=== PATIENT | male | born 1970 | race Caucasian/White ===

== ENCOUNTER 2018-09-03 11:41 | Emergency (ER) ==
[2018-09-03 11:46] VITALS: BP 190/113; TEMP 97; BMI 29.0
[2018-09-03] MEDS ORDERED: TORADOL IM STA (12:01)
[2018-09-03] MEDS ORDERED: DILAUDID 0.5 MG/0.5 ML SYRINGE IM STA (12:05)
[2018-09-03] MEDS ORDERED: TORADOL IVP STA (12:44)
[2018-09-03] MEDS ORDERED: DILAUDID 0.5 MG/0.5 ML SYRINGE IVP STA (12:45)
--- NOTE | 2018-09-03 13:43 | CT ---
Exam: CT abdomen pelvis without intravenous contrast. Comparison: None available. Reason for exam: Pain, renal stone protocol. FINDINGS: Image interpretation is limited by the lack of intravenous contrast administration. No pleural effusion, or focal consolidation in the partially imaged lung bases. The liver is lower in attenuation in the spleen on the noncontrasted study. There are multiple stones in the left renal parenchyma measuring up to 4.2 mm without evidence of hyd ronephrosis or ureterolithiasis. Multiple stones are seen in the right renal parenchyma measuring up to 6.8 mm. There is mild hydrone phrosis with moderate hydroureter is seen throughout the right renal collecting system. There is a 4 .3 x 4.3 mm right ureterovesicular stone with surrounding inflammatory change. No evidence of bowel dilatation or focal transition point. The adrenal glands, spleen and pancreas a ppear grossly unremarkable. The gallbladder appears grossly unremarkable. No intra-abdominal free air or pelvic free fluid. No suspicious appearing osteoblastic or osteolytic lesion. Degenerative disease is seen in the lumbosacral spine with vacuum disc phenomenon. Impression: 1. 4.3 mm right ureterovesicular stone with moderate hydroureter and mild hydronephrosis. 2. Bilateral renal parenchymal stones measuring up to 6.8 mm in the right kidney and 4.2 mm in the l eft kidney. 3. Hepatic steatosis
--- NOTE | 2018-09-03 14:13 | ED.PDOC ---
General ED Provider: Dr. SHASHI CABAN Chief Complaint: Kidney Stone Stated Complaint: right flank pain radiating to right groin , has had kidney stone in the past and stated that the pattern of pain is same as his prior renal stone disease Time Seen by Physician: 11:43 Mode of Arrival: Walk-In Information Source: Patient Exam Limitations: No limitations Primary Care Provider: LIZETH WALTON Nursing and Triage Documentation Reviewed and Agree: Yes Does patient meet sepsis criteria?: No System Inflammatory Response Syndrome: Not Applicable Sepsis Protocol: For patient's 13 years and over: Temp is 96.8 and below OR 101 and greater Pulse >90 BPM Resp >20/minute Acutely Altered Mental Status Are patient's symptoms suggestive of a new infection, such as: -Pneumonia -Skin, Soft Tissue -Endocarditis -UTI -Bone, Joint Infection -Implantable Device -Acute Abdominal Infection -Wound Infection -Meningitis -Blood Stream Catheter Infection -Unknown Review of Systems - Review Of Systems Constitutional: Reports: No symptoms Eyes: Reports: No symptoms Ears, Nose, Mouth, Throat: Reports: No symptoms Respiratory: Reports: No symptoms Cardiac: Reports: No symptoms GI: Reports: No symptoms : Reports: No symptoms Musculoskeletal: Reports: Back pain (right ) Skin: Reports: No symptoms Neurological: Reports: No symptoms Endocrine: Reports: No symptoms Hematologic/Lymphatic: Reports: No symptoms All Other Systems: Reviewed and Negative Past Medical History - Past Medical History Previously Healthy: Yes Endocrine: Reports: None Cardiovascular: Reports: None Respiratory: Reports: None Hematological: Reports: None Gastrointestinal: Reports: None Genitourinary: Reports: Kidney stones Neuro/Psych: Reports: None Musculoskeletal: Reports: None Cancer: Reports: None - Surgical History General Surgical History: Reports: None - Family History Family History: Reports: None - Social History Smoking Status: Never smoker Hx Substance Use: No Alcohol Screening: None - Immunizations Tetanus Shot up to Date: No Physical Exam - Physical Exam Appearance: Well-appearing, No pain distress, Well-nourished Eyes: KRUNAL, EOMI, Conjunctiva clear ENT: Ears normal, Nose normal, Oropharynx normal Respiratory: Airway patent, Breath sounds clear, Breath sounds equal, Respirations nonlabored Cardiovascular: RRR, Pulses normal, No rub, No murmur GI/: Soft, Nontender, No masses, Bowel sounds normal, No Organomegaly Musculoskeletal: Normal strength, ROM intact, No edema, No calf tenderness Skin: Warm, Dry, Normal color Neurological: Sensation intact, Motor intact, Reflexes intact, Cranial nerves intact, Alert, Oriented Psychiatric: Affect appropriate, Mood appropriate Interpretation - Radiology Interpretation Radiology Interpretation By: Radiologist Radiology Results: Positive (4.3 mm right ureter) Physician Notification - Case Discussed Physician Notified: la chaves Time of Notification: 14:21 (ask pt to see me on wednesday if sicker go to [facility] ) Critical Care Note - Critical Care Note Total Time (mins): 0 Course - Course Hematology/Chemistry: 09/03/18 12:20 09/03/18 12:20 Orders, Labs, Meds: Lab Review 09/03/18 09/03/18 12:20 12:20 WBC 9.01 RBC 5.08 Hgb 16.1 Hct 46.8 MCV 92.1 MCH 31.7 H MCHC 34.4 RDW Coeff of Jeni 12.7 Plt Count 203 Immature Gran % (Auto) 0.3 Neut % (Auto) 80.4 Lymph % (Auto) 12.3 [place] % (Auto) 5.9 Eos % (Auto) 0.7 Baso % (Auto) 0.4 Immature Gran # (Auto) 0.0 Neut # (Auto) 7.2 H Lymph # (Auto) 1.1 [place] # (Auto) 0.5 Eos # (Auto) 0.1 Baso # (Auto) 0.0 Sodium 137.5 Potassium 4.31 Chloride 104.6 Carbon Dioxide 16.2 L Anion Gap 21.01 BUN 14.1 Creatinine 0.99 Estimated GFR (MDRD) 81.00 BUN/Creatinine Ratio 14.24 Glucose 144.8 H Calcium 9.65 Total Bilirubin 1.34 H AST 107.3 H ALT 165.9 H Alkaline Phosphatase 77.8 Total Protein 8.12 Albumin 5.13 H Globulin 2.99 Albumin/Globulin Ratio 1.71 Orders Category Date Time Status CBC W/ AUTO DIFF Stat LAB 09/03/18 12:20 Completed COMPREHENSIVE METABOLIC PANEL Stat LAB 09/03/18 12:20 Completed UA [URINALYSIS C & S IF INDICATED] Stat LAB 09/03/18 12:02 Uncollected URINALYSIS C & S IF INDICATED Stat LAB 09/03/18 12:01 Uncollected Hydromorphone HCl [Dilaudid 0.5 mg/0.5 ml Syringe] MEDS 09/03/18 12:05 Discontinued 0.5 mg IM ONCE STA Hydromorphone HCl [Dilaudid 0.5 mg/0.5 ml Syringe] MEDS 09/03/18 12:45 Discontinued 0.5 mg IVP ONCE STA Ketorolac Tromethamine [Toradol] MEDS 09/03/18 12:44 Discontinued 30 mg IVP ONCE STA CT ABD/PEL WO RENAL STONE PROT Stat RADS 09/03/18 12:01 Completed Medications Discontinued Medications Generic Name Dose Route Start Last Admin Trade Name Nancy PRN Reason Stop Dose Admin Hydromorphone HCl 0.5 mg 09/03/18 12:05 09/03/18 12:09 Dilaudid 0.5 Mg/0.5 Ml Syringe IM 09/03/18 12:06 0.5 mg ONCE STA Administration Hydromorphone HCl 0.5 mg 09/03/18 12:45 09/03/18 13:06 Dilaudid 0.5 Mg/0.5 Ml Syringe IVP 09/03/18 12:46 0.5 mg ONCE STA Administration Ketorolac Tromethamine 30 mg 09/03/18 12:44 09/03/18 13:06 Toradol IVP 09/03/18 12:45 30 mg ONCE STA Administration Vital Signs: Temp Pulse Resp BP Pulse Ox 09/03/18 11:42 97 F L 69 18 190/113 H 98 Departure - Departure Time of Disposition: 14:21 Disposition: HOME SELF-CARE Discharge Problem: Kidney stone Condition: Good Pt referred to PMD for follow-up: Yes IPMP verified?: No Additional Instructions: Please call your Family Physician as soon as possible to schedule a follow-up appointment.must see doctor la call the number provided. this is an obstructing stone if ignored this kind of stone will damage or make your kidney useless SEE DOCTOR LA Allergies/Adverse Reactions: Allergies No Known Allergies Allergy (Unverified 09/03/18 11:45) Home Medications: Ambulatory Orders 1 [Unobtainable] 09/03/18
== END 2018-09-03 14:40 | disposition home or self-care (01) ==
LOC: ED 11:41
DX: N20.0 Calculus of kidney (principal); R94.5 Abnormal results of liver function studies
CPT/HCPCS: 36415; 74176; 80053; 80074; 85025; 96372; 96375; 99283